=== PATIENT | female | born 1990 | race Caucasian/White ===

== ENCOUNTER 2017-06-29 09:20 | Day surgery (SDC) | payer OTHER ==
[2017-06-24 11:52] VITALS: BMI 20.3
[2017-06-29] MEDS ORDERED: LACTATED RINGERS 1,000 ML IV SCH (09:45)
[2017-06-29 09:46] VITALS: TEMP 97.9
[2017-06-29] MEDS ORDERED: LIDOCAINE 1% 20 ML VIAL (10MG/ML) FOR IV START INTRADERMA ONE (09:56)
--- NOTE | 2017-06-29 10:54 | P.PCN ---
Date of Procedure: 06/29/17 Surgeon: Alejandro Gilbert Pathology: none sent Condition: stable Disposition: PACU Description of Procedure: PREOPERATIVE DIAGNOSIS: 1-rule out multiple sclerosis POSTOPERATIVE DIAGNOSIS: same PROCEDURE 1. Diagnostic lumbar puncture ANESTHESIA: Local with 1% lidocaine; conscious sedation with Versed only EBL: Minimal PROCEDURE INDICATION: The patient with persistent generalized body pain and numbness due to presumed demyelinating disease who presents for diagnostic LP as ordered by Dr. Gil. No use of blood thinners. PROCEDURE DESCRIPTION / TECHNIQUE: The patient was seen and identified in the preoperative area. Risks, benefits, complications, and alternatives were discussed with the patient, including but not limited to bleeding, infection, nerve damage, allergic reactions to medications, and spinal headache. The patient agreed to proceed with the procedure and signed the consent after all questions were answered. Vital signs were stable. Patient was taken to the procedure room and time out was completed to confirm patient position, procedure, area of pain, and allergies. The patient was placed in the sitting position on procedure table with help from nursing staff. The lumbosacral area was prepped and draped in the usual sterile fashion. Vital signs were closely monitored during the procedure. After localization with 1% lidocaine, a 22-gauge 3.5-inch spinal needle was placed in the L3-L4 interspace. Stylet was removed and clear cerebrospinal fluid was obtained. 14 ml CSF was removed and put into four tubes. COMPLICATIONS: None COMMENTS: None DISPOSITION / PLANS: The patient was placed in a supine position and transferred to the recovery area in a stable condition for observation. There was no evidence of lower extremity motor or sensory deficit after the procedure. Patient was discharged from the recovery room after meeting discharge criteria. Home discharge instructions were given to the patient by the staff. The patient was reexamined prior to discharge and there were no issues. The patient will follow up with her neurologist as scheduled.
[2017-06-29] MEDS ORDERED: IV FLUID CONTINUATION 1,000 ML IV ONE (11:01)
[2017-06-29 11:05] VITALS: RESP 18
[2017-06-29 11:23] VITALS: BP 108/65; PULSE 88
[2017-06-29 15:33] LABS: Glucose,CSF 48 mg/dL (40-70); Total Protein,CSF 29 mg/dL (12-60)
[2017-06-29 15:51] LABS: Rheumatoid Factor 6 IU/mL (0-15)
[2017-06-29 16:24] LABS: DNA Double-Stranded NEGATIVE (NEGATIVE)
[2017-06-29 16:25] LABS: RNP 0.3 AI
[2017-06-29 16:41] LABS: Appearance,CSF Clear; CSF Tube Number 1; Nucleated Cells, CSF 1 u/L (0-5); Red Blood Cell,CSF 0 u/L (0-10)
[2017-06-30 05:06] LABS: Angiotensin-1 Converting Enz. 36 U/L (8-52)
[2017-06-30 09:37] LABS: Lyme IgG/IgM 0.1 Index
[2017-06-30 11:54] LABS: APTT 42 Sec(s) (<43); Dilute Russell Viper Venom 30 Sec(s) (<44)
[2017-06-30 13:06] LABS: VDRL, Qualitative CSF Nonreactive (Nonreactive)
[2017-06-30 13:13] LABS: IgG - CSF 1.9 mg/dL (0.0 - 3.4); IgG/Albumin Index (CSF) 0.44 (0.00 - 0.77)
[2017-06-30 17:18] LABS: T4, Total 5.4 ug/dL (4.5 - 10.9)
== END 2017-06-29 12:00 | disposition home or self-care (01) ==
LOC: MERGE 09:20 → ORPAIN 09:20
PROVIDERS: ATTEND Anesthesiology
DX: R52 Pain, unspecified (principal); R20.0 Anesthesia of skin; R20.2 Paresthesia of skin
CPT/HCPCS: 81025; 87476; 86592 ×2; 86235 ×3; 88108; 84157; 82945; 82040; 82042; 82784; 83916; 82164 ×2; 83873; 84436; 84443; 84450; 84460; 85730; 86431; 85613; 89050; 86618; 86038; 86225; 62270; J2250; 99152

== ENCOUNTER → 2017-07-15 | Outpatient (CLI) | payer OTHER ==
--- NOTE | 2017-07-15 13:46 | US ---
EXAMINATION TYPE: US pelvic complete DATE OF EXAM: 07/15/2017 COMPARISON: CT CLINICAL HISTORY: R63.5 abnormal weight gain in past 3 weeks; urinary frequency, elevated WBC; ; on multiple medications for fibromyalgia, inflammation TECHNIQUE: Transabdominal (TA) Date of LMP: approximately 2 weeks ago EXAM MEASUREMENTS: Uterus: 7.3 x 5.6 x 3.6 cm Endometrial Stripe: 0.9 cm Right Ovary: 4.1 x 3.9 x 1.8 cm Left Ovary: 3.5 x 1.8 x 1.7 cm 1. Uterus: Anteverted with fully distended bladder; small Nabothian cyst in cervix = 0.4 x 0.3 x 0. 2cm 2. Endometrium: thickness wnl for LMP approximately 2 weeks ago 3. Right Ovary: multiple ovarian cysts with largest = 1.9 x 1.8 x 1.2cm 4. Left Ovary: multiple small follicles Spectral, color and waveform doppler imaging shows good arterial and venous flow within the ovaries ; there is no evidence for ovarian torsion. 5. Bilateral Adnexa: wnl 6. Posterior cul-de-sac: small amount of free fluid = 1.9 x 1.8 x 0.4cm 7. Bladder: bilateral ureteral jets are seen; post void volume at 312.3ml is abnormal as is >50.0ml IMPRESSION: 1. Small amount of free fluid in the pelvis with a ovarian cyst noted on the right measuring 1.9 cm. 2. Post void residual is elevated correlate clinically.
== END | disposition home or self-care (01) ==
LOC: RADUSWWP 12:50 → MERGE 12:50
PROVIDERS: ATTEND Family Medicine
DX: N83.201 Unspecified ovarian cyst, right side (principal); Z80.41 Family history of malignant neoplasm of ovary
CPT/HCPCS: 76856

== ENCOUNTER → 2019-07-09 | Outpatient (CLI) | payer OTHER ==
[2019-07-09 12:39] LABS: Basophils # (A) 0.1 k/uL (0-0.2); Basophils % (A) 0 %; Eosinophils # (A) 0.2 k/uL (0-0.7); Eosinophils % (A) 2 %; HCT 41.1 % (34.0-46.0); HGB 13.1 gm/dL (11.4-16.0); Lymphocytes # (A) 2.2 k/uL (1.0-4.8); Lymphocytes % (A) 20 %; MCH 30.3 pg (25.0-35.0); MCV 94.7 fL (80.0-100.0); Mean Platelet Volume 7.5; Monocytes # (A) 0.6 k/uL (0-1.0); Monocytes % (A) 5 %; Neutrophils # (A) 7.9 k/uL (1.3-7.7); Neutrophils % (A) 71 %; Platelet Count 333 k/uL (150-450); RBC 4.34 m/uL (3.80-5.40); RDW 13.9 % (11.5-15.5); WBC 11.2 k/uL (3.8-10.6)
[2019-07-09 13:48] LABS: Erythrocyte Sedimentation Rate 8 mm/hr (0-20)
[2019-07-09 19:04] LABS: ALT 19 U/L (8-44); AST 26 U/L (13-35); African American GFR (CKD) 114.7 (60.0-200.0); Albumin/Globulin Ratio 1.95 (1.60-3.17); Alkaline Phosphatase 74 U/L (41-126); BUN/Creat Ratio 18.75 Ratio (12.00-20.00); C Reactive Protein <0.4 mg/dL (0.0-0.8); Calcium 9.5 mg/dL (8.7-10.3); Carbon Dioxide 27.9 mmol/L (21.6-31.8); Chloride 109 mmol/L (96-109); Globulin 2.2 g/dL (1.6-3.3); Glucose 83 mg/dL (70-110); Non-African American GFR(CKD) 98.9 (60.0-200.0); Potassium 4.3 mmol/L (3.5-5.5); Rheumatoid Factor, Qnt 7 IU/mL (0-15); Sodium 140 mmol/L (135-145); Total Bilirubin 0.4 mg/dL (0.3-1.2); Total Protein 6.5 g/dL (6.2-8.2)
== END | disposition home or self-care (01) ==
LOC: LABWHC1 11:43
PROVIDERS: ATTEND Nurse Practitioner Acute Care
DX: M13.0 Polyarthritis, unspecified (principal); R53.83 Other fatigue
CPT/HCPCS: 36415; 80053; 82306; 82607; 84207; 84439; 84443; 84481; 85025; 85652; 86038; 86140; 86431

== ENCOUNTER 2021-05-21 20:24 | Emergency (ER) | payer OTHER ==
[2021-05-21] MEDS ORDERED: IBUPROFEN 600 MG TAB PO STA (23:02)
[2021-05-21] MEDS ORDERED: ACETAMINOPHEN TAB 500 MG TAB PO STA (23:02)
--- NOTE | 2021-05-21 23:07 | ED ---
URI HPI <Dayana Saba - Last Filed: 05/21/21 23:01> <Torsten Padgett - Last Filed: 05/22/21 00:50> - General Stated Complaint: Chest Pain, Fever Time Seen by Provider: 05/21/21 23:02 - History of Present Illness Initial Comments: 30 year-old female patient presents for evaluation of cough, fever, congestion that worsened today. States she has had mild illness with slight cough for a couple weeks, symptoms significantly worsened today. Denies taking any medication for her symptoms. Denies chance of . Does history of fibromyalgia. Does report history of smoking. Has not been vaccinated for COVID. (Dayana Saba) - Related Data Home Medications Medication Instructions Recorded Confirmed Gabapentin 800 mg PO TID 03/23/15 11/06/15 Naproxen 500 mg PO Q12HR PRN 03/23/15 11/06/15 clonazePAM [KlonoPIN] 1 mg PO BID 11/06/15 11/06/15 methocarbamoL [Robaxin] 500 mg PO TID 11/06/15 11/06/15 DULoxetine HCL [Cymbalta] 60 mg PO DAILY 06/24/17 06/24/17 Gabapentin [Neurontin] 300 mg PO TID 06/24/17 06/24/17 Ibuprofen [Motrin] 600 mg PO Q8HR PRN 06/24/17 06/29/17 Nicotine Patch (Unknown Dose) 1 patch TOPICAL DAILY 06/24/17 06/29/17 Propranolol [Inderal] 10 mg PO DAILY 06/24/17 06/24/17 Previous Rx's Medication Instructions Recorded Albuterol Inhaler [Ventolin Hfa 2 puff INHALATION Q4HR PRN #8 gm 05/22/21 Inhaler] Promethazine 6.25MG/5Ml [Phenergan 5 ml PO Q4HR PRN #120 ml 05/22/21 Syrup] predniSONE [Deltasone] 20 mg PO BID #8 tab 05/22/21 Allergies Allergy/AdvReac Type Severity Reaction Status Date / Time No Known Allergies Allergy Verified 07/09/19 12:23 Review of Systems ROS Other: All systems not noted in ROS Statement are negative. <Dayana Saba - Last Filed: 05/21/21 23:01> ROS Other: All systems not noted in ROS Statement are negative. <VipinTorsten zeng - Last Filed: 05/22/21 00:50> ROS Statement: Those systems with pertinent positive or pertinent negative responses have been documented in the HPI. Past Medical History Past Medical History: Fibromyalgia Additional Past Medical History / Comment(s): pt states recent MRI of brain with white lesions History of Any Multi-Drug Resistant Organisms: MRSA, None Reported Date of last positivie culture/infection: 2012 MDRO Source:: lt arm Additional Past Surgical History / Comment(s): laparoscopy surgery for cyst lt ovary, lt hand cyst removed Past Anesthesia/Blood Transfusion Reactions: No Reported Reaction Past Psychological History: Anxiety Past Alcohol Use History: None Reported, Rare - Past Family History Mother Family Medical History: Deep Vein Thrombosis (DVT) <Dayana Saba - Last Filed: 05/21/21 23:01> General Exam General appearance: alert, in no apparent distress, other (This is a well- developed, well-nourished adult female in no acute distress.) ENT exam: Present: normal exam, normal oropharynx, mucous membranes moist, TM's normal bilaterally Neck exam: Present: normal inspection. Absent: tenderness, meningismus, lymphadenopathy Respiratory exam: Present: normal lung sounds bilaterally. Absent: respiratory distress, wheezes, rales, rhonchi, stridor Cardiovascular Exam: Present: regular rate, normal rhythm, normal heart sounds. Absent: systolic murmur, diastolic murmur, rubs, gallop, clicks GI/Abdominal exam: Present: soft, normal bowel sounds. Absent: distended, tenderness, guarding, rebound, rigid Neurological exam: Present: alert, oriented X3, CN II-XII intact Psychiatric exam: Present: normal affect, normal mood Skin exam: Present: warm, dry, intact, normal color. Absent: rash <Dayana Saba - Last Filed: 05/21/21 23:01> Course Vital Signs 05/21/21 05/21/21 05/21/21 23:00 23:04 23:12 Temperature 102.9 F H Pulse Rate 130 H 118 H Pulse Rate [ Distribution Coordinator ] Respiratory 20 18 Rate Blood Pressure 130/87 O2 Sat by Pulse 98 Oximetry 05/21/21 05/22/21 23:13 00:15 Temperature 101.1 F H Pulse Rate 18 L Pulse Rate [ 118 H Distribution Coordinator ] Respiratory 114 H Rate Blood Pressure 125/76 O2 Sat by Pulse 98 Oximetry Medical Decision Making - EKG Data -: EKG Interpreted by Me EKG shows normal: sinus rhythm, axis (Normal), intervals (Normal), QRS complexes (Normal), ST-T waves (Normal) Rate: tachycardia (Rate 123 bpm) <Torsten Padgett - Last Filed: 05/22/21 00:50> - Lab Data Lab Results 05/21/21 Range/Units 23:03 Coronavirus (PCR) Not Detected (Not Detectd) Disposition <Dayana Saba - Last Filed: 05/21/21 23:01> Is patient prescribed a controlled substance at d/c from ED?: No <Torsten Padgett - Last Filed: 05/22/21 00:50> Clinical Impression: Upper respiratory tract infection Disposition: HOME SELF-CARE Instructions (If sedation given, give patient instructions): Upper Respiratory Infection (ED) Prescriptions: predniSONE [Deltasone] 20 mg PO BID #8 tab Promethazine 6.25MG/5Ml [Phenergan Syrup] 5 ml PO Q4HR PRN #120 ml PRN Reason: Cough Albuterol Inhaler [Ventolin Hfa Inhaler] 2 puff INHALATION Q4HR PRN #8 gm PRN Reason: Wheezing Referrals: None,Stated [REFERRING] - 1-2 days
--- NOTE | 2021-05-21 23:22 | XR ---
EXAMINATION TYPE: XR chest 2V DATE OF EXAM: 05/21/2021 COMPARISON: NONE HISTORY: Cough TECHNIQUE: 2 views FINDINGS: Heart and mediastinum are normal. Lungs are clear. Diaphragm is normal. Bony thorax is inta ct. IMPRESSION: Normal chest.
[2021-05-22 00:16] VITALS: BP 125/76
[2021-05-22] MEDS ORDERED: ACETAMINOPHEN TAB 325 MG TAB PO STA (00:20)
[2021-05-22] MEDS ORDERED: IBUPROFEN 600 MG TAB PO STA (00:20)
[2021-05-22] MEDS ORDERED: ALBUTEROL NEBULIZED 2.5 MG/3 ML INHALATION STA (00:37)
[2021-05-22] MEDS ORDERED: predniSONE 20 MG TAB PO STA (00:50)
[2021-05-22 01:33] VITALS: PULSE 86; RESP 16; TEMP 99
== END 2021-05-22 01:33 | disposition home or self-care (01) ==
LOC: EC 20:24
DX: J06.9 Acute upper respiratory infection, unspecified (principal); M79.7 Fibromyalgia; Z79.899 Other long term (current) drug therapy; Z20.822 Contact with and (suspected) exposure to COVID-19; Z87.891 Personal history of nicotine dependence
CPT/HCPCS: 94640; 93005; 87502; 87634; 87635; 71046; 99285; J7512

== ENCOUNTER 2021-05-27 00:01 | Emergency (ER) | payer OTHER ==
[2021-05-27 00:54] VITALS: TEMP 99.3
--- NOTE | 2021-05-27 01:32 | XR ---
EXAMINATION TYPE: XR chest 2V DATE OF EXAM: 05/27/2021 COMPARISON: 05/21/2021 HISTORY: Chest pain TECHNIQUE: 2 views FINDINGS: Heart and mediastinum are normal. Lungs are clear. Diaphragm is normal. Bony thorax is inta ct. IMPRESSION: Normal chest. No change.
[2021-05-27] MEDS ORDERED: KETOROLAC 15 MG/ML 1 ML VIAL IM STA (03:31)
--- NOTE | 2021-05-27 03:34 | ED ---
General Adult HPI - General Chief complaint: Chest Pain Stated complaint: Pain in Ribs Time Seen by Provider: 05/27/21 03:22 Source: patient, RN notes reviewed Mode of arrival: EMS Limitations: physical limitation - History of Present Illness Initial comments: Patient is a 30-year-old female that presents to the emergency department complaining of cough and right-sided rib pain. She'll she was coughing at home when she felt a pop in her right ribs. She came to the emergency room via EMS. She denied any other issues or complaints. She noted that hospital several days ago diagnosed with Covid and sent home with medication. Patient was otherwise well-appearing. She was in moderate amounts of emotional distress due to pain from her rib pain. She denied any chest pain shortness of breath headache nausea vomiting diarrhea constipation fever fatigue chills. - Related Data Home Medications Medication Instructions Recorded Confirmed Gabapentin 800 mg PO TID 03/23/15 11/06/15 Naproxen 500 mg PO Q12HR PRN 03/23/15 11/06/15 clonazePAM [KlonoPIN] 1 mg PO BID 11/06/15 11/06/15 methocarbamoL [Robaxin] 500 mg PO TID 11/06/15 11/06/15 DULoxetine HCL [Cymbalta] 60 mg PO DAILY 06/24/17 06/24/17 Gabapentin [Neurontin] 300 mg PO TID 06/24/17 06/24/17 Ibuprofen [Motrin] 600 mg PO Q8HR PRN 06/24/17 06/29/17 Nicotine Patch (Unknown Dose) 1 patch TOPICAL DAILY 06/24/17 06/29/17 Propranolol [Inderal] 10 mg PO DAILY 06/24/17 06/24/17 Previous Rx's Medication Instructions Recorded Albuterol Inhaler [Ventolin Hfa 2 puff INHALATION Q4HR PRN #8 gm 05/22/21 Inhaler] Promethazine 6.25MG/5Ml [Phenergan 5 ml PO Q4HR PRN #120 ml 05/22/21 Syrup] predniSONE [Deltasone] 20 mg PO BID #8 tab 05/22/21 Benzonatate [Tessalon Perles] 100 mg PO TID PRN #15 capsule 05/27/21 Allergies Allergy/AdvReac Type Severity Reaction Status Date / Time No Known Allergies Allergy Verified 05/27/21 00:54 Review of Systems ROS Statement: Those systems with pertinent positive or pertinent negative responses have been documented in the HPI. ROS Other: All systems not noted in ROS Statement are negative. Past Medical History Past Medical History: Fibromyalgia Additional Past Medical History / Comment(s): pt states recent MRI of brain with white lesions History of Any Multi-Drug Resistant Organisms: MRSA, None Reported Date of last positivie culture/infection: 2012 MDRO Source:: lt arm Additional Past Surgical History / Comment(s): laparoscopy surgery for cyst lt ovary, lt hand cyst removed Past Anesthesia/Blood Transfusion Reactions: No Reported Reaction Past Psychological History: Anxiety Smoking Status: Current every day smoker Past Alcohol Use History: None Reported, Rare - Past Family History Mother Family Medical History: Deep Vein Thrombosis (DVT) General Exam Limitations: physical limitation General appearance: alert, in no apparent distress Head exam: Present: atraumatic, normocephalic, normal inspection Eye exam: Present: normal appearance, PERRL, EOMI. Absent: scleral icterus, conjunctival injection, periorbital swelling ENT exam: Present: normal exam, mucous membranes moist Neck exam: Present: normal inspection Respiratory exam: Present: normal lung sounds bilaterally. Absent: respiratory distress, wheezes, rales, rhonchi, stridor Cardiovascular Exam: Present: regular rate, normal rhythm, normal heart sounds. Absent: systolic murmur, diastolic murmur, rubs, gallop, clicks Extremities exam: Present: normal inspection, full ROM, normal capillary refill. Absent: tenderness, pedal edema, joint swelling, calf tenderness Neurological exam: Present: alert, oriented X3 Psychiatric exam: Present: normal affect, normal mood Skin exam: Present: warm, dry, intact, normal color. Absent: rash Course Vital Signs 05/27/21 00:50 Temperature 99.3 F Pulse Rate 99 Respiratory 18 Rate Blood Pressure 136/86 O2 Sat by Pulse 97 Oximetry Medical Decision Making - Medical Decision Making 30-year-old female complaining of right rib pain after coughing. X-ray of the ribs ordered. X-rays negative for any acute process. 15 g Toradol given for pain. Mandi Umanzor sent to pharmacy. Patient was informed that coughing can induce irritation and ribs in the muscles between ribs causing sharp knifelike pain. Patient was informed that she cannot wrap her ribs as it can lead to pneumonia. Case discussed with Dr. Padgett. - Radiology Data Radiology results: report reviewed, image reviewed Chest x-ray: Normal chest. No change. Disposition Clinical Impression: Costochondritis, Cough Disposition: HOME SELF-CARE Condition: Stable Instructions (If sedation given, give patient instructions): Costochondritis (ED) Additional Instructions: Please return to the Emergency Department if symptoms worsen or any other concerns. Follow-up with primary care 1-2 days. Take Tessalon Perles as prescribed. Take Tylenol Motrin [id number] as needed for pain control. Prescriptions: Benzonatate [Tessalon Perles] 100 mg PO TID PRN #15 capsule PRN Reason: Cough Is patient prescribed a controlled substance at d/c from ED?: No Referrals: Reza Estrada MD [Primary Care Provider] - 1-2 days Time of Disposition: 03:34
[2021-05-27 03:41] VITALS: BP 129/98; PULSE 93; RESP 20
== END 2021-05-27 03:57 | disposition home or self-care (01) ==
LOC: EC 00:01
DX: M94.0 Chondrocostal junction syndrome [Tietze] (principal); F17.200 Nicotine dependence, unspecified, uncomplicated; M79.7 Fibromyalgia; Z79.899 Other long term (current) drug therapy
CPT/HCPCS: 71046; 99285; 96372; J1885

== ENCOUNTER 2022-03-04 20:48 | Emergency (ER) | payer OTHER ==
[2022-03-04] MEDS ORDERED: KETOROLAC 15 MG/ML 1 ML VIAL IM STA (21:29)
--- NOTE | 2022-03-04 21:39 | ED ---
Fall HPI - General Chief Complaint: Fall Stated Complaint: Fall-R arm/rib injury Time Seen by Provider: 03/04/22 21:24 Source: patient Mode of arrival: ambulatory - History of Present Illness Initial Comments: This 31-year-old female presents complaining of some right elbow and right rib pain. She states that she was carrying some puppies and tripped on an object and fell to the ground landing directly on her right elbow and right ribs. This occurred shortly prior to arrival. She denies any head injury or neck pain. She denies any other complaints or modifying factors. She states that the pain is fairly severe in nature. No other complaints or modifying factors. - Related Data Home Medications Medication Instructions Recorded Confirmed Gabapentin 800 mg PO TID 03/23/15 11/06/15 Naproxen 500 mg PO Q12HR PRN 03/23/15 11/06/15 clonazePAM [KlonoPIN] 1 mg PO BID 11/06/15 11/06/15 methocarbamoL [Robaxin] 500 mg PO TID 11/06/15 11/06/15 DULoxetine HCL [Cymbalta] 60 mg PO DAILY 06/24/17 06/24/17 Gabapentin [Neurontin] 300 mg PO TID 06/24/17 06/24/17 Ibuprofen [Motrin] 600 mg PO Q8HR PRN 06/24/17 06/29/17 Nicotine Patch (Unknown Dose) 1 patch TOPICAL DAILY 06/24/17 06/29/17 Propranolol [Inderal] 10 mg PO DAILY 06/24/17 06/24/17 Previous Rx's Medication Instructions Recorded Albuterol Inhaler [Ventolin Hfa 2 puff INHALATION Q4HR PRN #8 gm 05/22/21 Inhaler] Promethazine 6.25MG/5Ml [Phenergan 5 ml PO Q4HR PRN #120 ml 05/22/21 Syrup] predniSONE [Deltasone] 20 mg PO BID #8 tab 05/22/21 Benzonatate [Tessalon Perles] 100 mg PO TID PRN #15 capsule 05/27/21 Allergies Allergy/AdvReac Type Severity Reaction Status Date / Time No Known Allergies Allergy Verified 03/04/22 21:04 Review of Systems ROS Statement: Those systems with pertinent positive or pertinent negative responses have been documented in the HPI. ROS Other: All systems not noted in ROS Statement are negative. Past Medical History Past Medical History: Fibromyalgia Additional Past Medical History / Comment(s): pt states recent MRI of brain with white lesions History of Any Multi-Drug Resistant Organisms: MRSA, None Reported Date of last positivie culture/infection: 2012 MDRO Source:: lt arm Additional Past Surgical History / Comment(s): laparoscopy surgery for cyst lt ovary, lt hand cyst removed Past Anesthesia/Blood Transfusion Reactions: No Reported Reaction Past Psychological History: Anxiety Smoking Status: Current every day smoker Past Alcohol Use History: None Reported Past Drug Use History: None Reported - Past Family History Mother Family Medical History: Deep Vein Thrombosis (DVT) General Exam - General Exam Comments Initial Comments: GENERAL: The patient is well nourished and well hydrated. VITAL SIGNS: Heart rate, blood pressure, respiratory rate reviewed as recorded in nurse's notes. EYES: Pupils are round and reactive. Extraocular movements are intact. No conjunctival / lid redness or swelling. ENT: No external evidence of injury, swelling, or ecchymosis. Airway is patent. Throat is clear. NECK: Nontender. No swelling or evidence of injury. No subcutaneous emphysema. Trachea is midline. No thyroid mass. HEART: Regular rate and rhythm. Good peripheral pulses. LUNGS/CHEST: Breath sounds clear and equal bilaterally. No rales, rhonchi, or wheezes. No ecchymosis, subcutaneous emphysema, there is mild tenderness noted to the lateral aspect of the mid right ribs. ABDOMEN: Abdomen soft without tenderness. No palpable masses or organomegaly. No peritoneal signs. No abdominal wall swelling or ecchymosis. EXTREMITIES: Tenderness noted diffusely throughout the right elbow. There is pain with range of motion right elbow. Normal muscle tone and function. No thoracolumbar tenderness. NEUROLOGIC: Sensation is grossly intact. Cranial nerve exam reveals face is symmetrical, tongue is midline, speech is clear. SKIN: No abrasions or ecchymosis is noted. No induration or masses noted. PSYCHIATRIC: Alert and oriented. Appropriate behavior and judgment. Limitations: no limitations Course Vital Signs 03/04/22 21:01 Temperature 98.4 F Pulse Rate 119 H Respiratory 22 Rate Blood Pressure 161/84 O2 Sat by Pulse 99 Oximetry Medical Decision Making - Medical Decision Making The patient was seen and examined. She does receive Toradol 30 mg IM. X-rays were taken of the right chest and ribs as well as the right elbow. Radiologist does not see any acute process on the rib x-rays as well as the right elbow x- rays. Per my review, there is suspicion of a old right sixth rib fracture that nothing acute. Patient denies any relief with Toradol. She states that she currently is not on any home medications. She is given a tramadol starter pack. The right elbow sling also is ordered. She is informed that if her pain does persist and she should obtain a repeat x-ray in approximately one week. Orthopedic follow-up was also given in case her symptoms persist. Return parameters are discussed. Motrin and ice are also recommended. She states that she has Motrin at home. Disposition Clinical Impression: Fall, Rib contusion, Contusion of right elbow Disposition: HOME SELF-CARE Condition: Good Instructions (If sedation given, give patient instructions): Elbow Sprain (ED), Rib Contusion (ED) Is patient prescribed a controlled substance at d/c from ED?: No Referrals: Reza Estrada MD [Primary Care Provider] - 1-2 days Time of Disposition: 22:26
--- NOTE | 2022-03-04 21:42 | XR ---
EXAMINATION TYPE: XR ribs RT DATE OF EXAM: 03/04/2022 9:23 PM INDICATION: Patient age:Female; 31 years old; Reason for study: pain; COMPARISON: None TECHNIQUE: Frontal and oblique views of the right ribs with frontal chest radiograph. FINDINGS: The ribs have a normal appearance. No evidence of fracture. Overall, the lungs are clear. The cardiac silhouette is normal in size. The remaining osseous structures are intact. IMPRESSION RIBS: No acute osseous pathology.
--- NOTE | 2022-03-04 21:47 | XR ---
EXAMINATION TYPE: XR elbow complete RT DATE OF EXAM: 03/04/2022 9:23 PM INDICATION: Patient age:Female; 31 years old; Reason for study: pain; PHH. COMPARISON: None TECHNIQUE: The right elbow was examined in AP, lateral, and oblique projections. FINDINGS: No evidence of any acute osseous pathology, joint dislocation, or soft tissue swelling is n oted. No evidence of joint effusion is present. IMPRESSION: No evidence of acute fracture.
[2022-03-04] MEDS ORDERED: traMADol 50 MG STARTER PACK 3 TAB BTL PO STA (22:23)
[2022-03-04 22:51] VITALS: BP 125/87; PULSE 105; RESP 18; TEMP 97.9
== END 2022-03-04 22:53 | disposition home or self-care (01) ==
LOC: EC 20:48
DX: S50.01XA Contusion of right elbow, initial encounter (principal); S20.211A Contusion of right front wall of thorax, initial encounter; F17.200 Nicotine dependence, unspecified, uncomplicated; W01.0XXA Fall on same level from slipping, tripping and stumbling without subsequent striking against object, initial encounter
CPT/HCPCS: 71100; 73080; 96372; 99283; J1885